=== PATIENT | male | born 1965 | race Caucasian/White ===

== ENCOUNTER 2018-06-25 18:16 | Emergency (ER) | payer OTHER ==
[~2018-06-25] VITALS: Ht 170.2 cm; Wt 136.1 kg
[2018-06-25] MEDS ORDERED: IBUPROFEN 800800 M1 PO (18:35)
[2018-06-25 18:48] LABS: ABSOLUTE EOSINOPHILS 0.2 thou/uL (0.0-0.7); ABSOLUTE LYMPHOCYTES 2.3 thou/uL (0.8-5.3); ABSOLUTE MONOCYTES 0.9 thou/uL (0.0-1.2); BASOPHILS 0.4 %; EOSINOPHILS 2.4 %; HEMATOCRIT 45.2 % (42.0-52.0); HEMOGLOBIN 15.3 gm/dL (14.0-18.0); LYMPHOCYTES 24.1 %; MCH 30.8 pg (26.0-34.0); MCHC 33.8 g/dL (28.0-37.0); MCV 91.1 fL (80.0-100.0); MONOCYTES 9.9 %; MPV 9.1 fl. (7.2-11.1); NUCLEATED RBCS 0 /100WBC; PLATELET COUNT* 243 thou/uL (150-400); POLYS 63.2 %; RBC 4.96 mil/uL (4.50-6.00); RDW-CV 15.1 % (10.5-14.5); WBC 9.5 thou/uL (4.0-11.0)
[2018-06-25 18:58] LABS: ANION GAP 7 mmol/L (7-16); APTT 29.4 Seconds (25.0-31.3); BUN 16 mg/dL (7-18); CALCIUM 8.6 mg/dL (8.5-10.1); CHLORIDE 103 mmol/L (98-107); CO2 31 mmol/L (21-32); GLUCOSE 90 mg/dL (70-99); POTASSIUM 3.8 mmol/L (3.5-5.1); PROTIME 10.3 Seconds (9.20-11.50); SODIUM 141 mmol/L (136-145)
[2018-06-25 19:09] LABS: ALBUMIN 3.2 g/dL (3.4-5.0); ALKALINE PHOSPHATASE 58 U/L (46-116); NT-PRO BRAIN NAT PEPTIDE 1329 pg/mL (<300); SGOT 15 U/L (15-37); SGPT 23 U/L (30-65); TOTAL BILIRUBIN 0.2 mg/dL (<0.1-1.0); TOTAL PROTEIN 7.1 g/dL (6.4-8.2); TROPONIN-I LEVEL <0.06 ng/mL (<0.06)
[2018-06-25 20:00] LABS: URINE BILIRUBIN NEGATIVE (Negative); URINE BLOOD 1+ (Negative); URINE CLARITY CLEAR; URINE COLOR YELLOW; URINE GLUCOSE-RANDOM NEGATIVE (Negative); URINE KETONES NEGATIVE (Negative); URINE LEUKOCYTES-REFLEX NEGATIVE (Negative); URINE NITRITE-REFLEX NEGATIVE (Negative); URINE PROTEIN TRACE (Negative); URINE SPECIFIC GRAVITY 1.015 (1.005-1.030); URINE UROBILINOGEN 0.2 E.U./dl (0.2-1.0)
[2018-06-25 20:12] LABS: BACTERIA-REFLEX None Seen /HPF (None Seen); MUCUS 0-3 Light strn/LPF (None Seen); SQUAMOUS 0-3 Few /LPF (0-3); URINE RBC 0-2 Rare /HPF (0-2); URINE WBC-REFLEX None Seen /HPF (0-5)
[2018-06-25 20:13] LABS: CASTS None Seen /LPF (None Seen); CRYSTALS None Seen /LPF (None Seen)
[2018-06-25 20:33] LABS: AMP/METHAMP Negative (Negative); BARBITURATES Negative (Negative); BENZODIAZEPINES Negative (Negative); COCAINE Negative (Negative); METHADONE Negative (Negative); OPIATES Negative (Negative); PCP Negative (Negative); THC Negative (Negative)
[2018-06-25] MEDS ORDERED: LISINOPRIL10 MG PO (23:16)
[2018-06-25] MEDS ORDERED: CLONIDINE0.1 PO (23:16)
[2018-06-25 23:28] VITALS: BP 177/88
--- NOTE | 2018-06-26 15:00 | EKG ---
[place] [address] ELECTROCARDIOGRAM REPORT Name: FLOWER SHAH Room: [facility]#: [id number] Admission: 06/25/18 Attend Phys: Discharge: 06/25/18 Date of : 61 Report #: [id number] THIS REPORT FOR: //name// [facility] ED Test Date: 2018-06-25 Test Time: 19:09:48 Pat Name: FLOWER SHAH Department: Room: Gender: M Master [place]: : 1965 Requested By: Tyler Cool Order Number: [id number] MD: El Oglesby Measurements Intervals [place] Rate: 71 P: 17 [place]: 174 QRS: -38 QRSD: 114 T: 144 QT: 440 QTc: 479 Interpretive Statements Sinus rhythm Ventricular premature complex Probable left atrial enlargement LVH with IVCD, LAD and secondary repol abnrm Anterior ST elevation, probably due to LVH Borderline prolonged QT interval Compared to ECG 09/18/2007 23:44:37 Ventricular premature complex(es) now present Intraventricular conduction delay now present Left ventricular hypertrophy now present ST (T wave) deviation now present Electronically Signed On 06-26-2018 15:00:25 SAP PORTAL DEVELOPER by El Oglesby [email or web address] <ELECTRONICALLY SIGNED> By: El Oglesby MD, FACC 06/26/18 1500 08 08 El Oglesby MD, FAC /EPI
--- NOTE | 2018-06-26 15:01 | EKG ---
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: : 1965 Requested By: Cheli Hernandez Order Number: [id number] MD: El Oglesby Measurements Intervals [place] Rate: 74 P: 33 [place]: 170 QRS: -38 QRSD: 115 T: 144 QT: 456 QTc: 506 Interpretive Statements Sinus rhythm Ventricular premature complex Probable left atrial enlargement LVH with IVCD, LAD and secondary repol abnrm Prolonged QT interval Electronically Signed On 06-26-2018 15:01:01 LEAD CUSTODIAN by El Oglesby [email or web address] <ELECTRONICALLY SIGNED> By: El Oglesby MD, [facility] 06/26/18 1501 191 09 El Oglesby MD, FACC /EPI
== END 2018-06-25 23:28 | disposition home or self-care (01) ==
LOC: M.ERS 18:16
PROVIDERS: Emergency Medicine; Family Medicine
DX: I10 Essential (primary) hypertension (principal); Z79.899 Other long term (current) drug therapy

== ENCOUNTER 2019-02-14 14:10 | Inpatient (IN) | payer OTHER ==
[~2019-02-14] VITALS: Ht 170.2 cm; Wt 137.9 kg
[~2019-02-14 14:10] MED LIST: CLONIDINE0.1 PO; IBUPROFEN 800800 M1 PO; LISINOPRIL10 MG PO
[2019-02-14 14:15] VITALS: BP 227/135
[2019-02-14 14:25] LABS: ABSOLUTE BASOPHILS 0.1 thou/uL (0.0-0.2); ABSOLUTE EOSINOPHILS 0.3 thou/uL (0.0-0.7); ABSOLUTE LYMPHOCYTES 3.3 thou/uL (0.8-5.3); ABSOLUTE MONOCYTES 0.7 thou/uL (0.0-1.2); ABSOLUTE NEUTROPHILS 5.4 thou/uL (1.6-8.1); BASOPHILS 1.3 %; EOSINOPHILS 2.7 %; HEMATOCRIT 49.7 % (42.0-52.0); HEMOGLOBIN 16.7 gm/dL (14.0-18.0); LYMPHOCYTES 33.8 %; MCH 30.4 pg (26.0-34.0); MCHC 33.6 g/dL (28.0-37.0); MCV 90.3 fL (80.0-100.0); MONOCYTES 7.3 %; MPV 8.7 fl. (7.2-11.1); NUCLEATED RBCS 0 /100WBC; PLATELET COUNT* 283 thou/uL (150-400); POLYS 54.9 %; RBC 5.51 mil/uL (4.50-6.00); RDW-CV 14.7 % (10.5-14.5); WBC 9.9 thou/uL (4.0-11.0)
[2019-02-14 14:34] LABS: CALCIUM 9.2 mg/dL (8.5-10.1); POTASSIUM 3.5 mmol/L (3.5-5.1)
[2019-02-14 14:38] LABS: APTT 31.5 Seconds (25.0-31.3); PROTIME 10.1 Seconds (9.20-11.50)
[2019-02-14 14:48] LABS: ALBUMIN 3.7 g/dL (3.4-5.0); CK-MB MASS 3.3 ng/mL (<0.5-3.6); MAGNESIUM 1.8 mg/dL (1.8-2.4); TOTAL BILIRUBIN 0.3 mg/dL (<0.1-1.0); TOTAL PROTEIN 8.1 g/dL (6.4-8.2); TROPONIN-I LEVEL 0.06 ng/mL (<0.06)
[2019-02-14 16:54] VITALS: BP 113/67
[2019-02-14 17:09] VITALS: BP 108/70
[2019-02-14 17:25] VITALS: BP 105/69
[2019-02-14 18:10] VITALS: BP 127/80
--- NOTE | 2019-02-14 18:46 | NUR ---
RECIEVED REPORT FROM ED NURSE APPROX 1510. PT UP ON UNIT APPROX 1515. PT VITALS TAKEN. PT DENIES CHEST PAIN. PT DENIES SOA. LABS REVIEWED. RESULTS CALLED TO SILO FILLER PHYSICAN AND FIBER ANALYST. PTS O2 DC O2 STAT ON RA IS 98%. WILL CONTINUE TO MONITOR.
[2019-02-14 20:00] VITALS: BP 148/81
[2019-02-15] VITALS (7 sets, daily range): BP systolic 102–154; BP diastolic 72–90
[2019-02-15 04:54] LABS: HEMATOCRIT 44.6 % (42.0-52.0); HEMOGLOBIN 15.3 gm/dL (14.0-18.0); MCH 30.9 pg (26.0-34.0); MCHC 34.2 g/dL (28.0-37.0); MCV 90.4 fL (80.0-100.0); MPV 9.2 fl. (7.2-11.1); RBC 4.94 mil/uL (4.50-6.00); RDW-CV 14.3 % (10.5-14.5); WBC 9.7 thou/uL (4.0-11.0)
[2019-02-15 05:11] LABS: ANION GAP 6 mmol/L (7-16); BUN 17 mg/dL (7-18); CHLORIDE 104 mmol/L (98-107); CHOLESTEROL 171 mg/dL (<200); CO2 29 mmol/L (21-32); GLUCOSE 87 mg/dL (70-99); HDL CHOLESTEROL 30 mg/dL (>40); LDL CHOLESTEROL 110 mg/dL (<100); MAGNESIUM 1.8 mg/dL (1.8-2.4); POTASSIUM 3.8 mmol/L (3.5-5.1); SODIUM 139 mmol/L (136-145); TC:HDL 5.7 Ratio (Not establshd); TRIGLYCERIDE 159 mg/dL (<150); VLDL 32 mg/dL (<40)
[2019-02-15 05:14] LABS: SERUM ASSESSMENT Clear
[2019-02-15 05:21] LABS: TROPONIN-I LEVEL 14.94 ng/mL (<0.06)
--- NOTE | 2019-02-15 09:29 | NUR ---
ASSUMED CARE OF PT THIS AM AROUND 0715- RECEIVING TEAM MEMBER IN PLACE ORDERED, TRACING A-FIB- UPON ASSESSMENT PT NOTED TO BE RESTING IN BED, FAMILY AT SIDE- PT A&O X4- CONTINENT OF BOWEL AND BLADDER- UP AD-JOSE IN ROOM, STEADY GAIT NOTED- LCTA/DIMINISHED IN BASES- RESP EVEN AND UN-LABORED- VSS, O2 SAT 98% ON HOME CPAP THIS AM- ABD SOFT/OBESE/NON-TENDER, BS X4 QUADS- LAST BM REPORTED 02/14/19- IV NOTED TO RIGHT AC INTACT, HEPARIN INFUSSING PRESCIBED- PLANNED CATH IN AM, NPO AT MIDNIGHT- SOTALOL LOAD PLANNED PER CARDIO THIS SHIFT-PT DENIES ANY C/O PAIN/DISCOMFORT AT THIS TIME- CALL LIGHT AND PERSONAL BELONGINGS WITH IN REACH- PT MAKES NEEDS KNOWN- ALL NEEDS MET AT THIS TIME-WCTM
--- NOTE | 2019-02-15 10:35 | EKG ---
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: [place] : 1965 Requested By: Tyler Cool Order Number: [id number] MD: Lawrence Lloyd Measurements Intervals [place] Rate: 153 P: [place]: QRS: -52 QRSD: 107 T: 123 QT: 318 QTc: 508 Interpretive Statements Atrial fibrillation Incomplete left bundle branch block LVH with secondary repolarization abnormality Prolonged QT interval Baseline wander in lead(s) V4 Compared to ECG 06/25/2018 19:10:41 Left bundle-branch block now present Sinus rhythm no longer present Ventricular premature complex(es) no longer present Intraventricular conduction delay no longer present Electronically Signed On 02-15-2019 10:34:54 CDT by Lawrence Lloyd [email or web address] <ELECTRONICALLY SIGNED> By: Lawrence Lloyd MD, FAC 02/15/19 1034 1415 1415 Lawrence Lloyd MD, [facility] /EPI
--- NOTE | 2019-02-15 13:19 | NUR ---
Pt is A&O. Resides at home with his . Active and independent. No DME. No hx of HH or SNF. Pt to have cath tomorrow. No needs anticipated. Following.
--- NOTE | 2019-02-15 14:39 | 2DMMODE ---
[place] [address] 2 D/M-MODE ECHOCARDIOGRAM Name: FLOWER SHAH Room: [address] IN [facility]#: [id number] Admission: 02/14/19 Attend Phys: Zi Marshall, Discharge: Date of : 61 Date of Service: 02/15/19 1438 Report #: [id number] THIS REPORT FOR: //name// APPROVED REPORT Study performed: 02/15/2019 10:10:59 EXAM: Comprehensive 2D, Doppler, and color-flow Echocardiogram Patient Location: In-Patient Room #: [facility] Status: routine BSA: 2.42 HR: 94 bpm BP: 148/90 mmHg Rhythm: Atrial Fibrillation Other Information Technically limited study due to body habitus, poor endocardial definition. Indications Atrial Fibrillation Echo Enhancing Agent Indication: Endocardial border delineation Agent(s) / Amount(s) Used: Optison 3 cc 2D Dimensions IVSd: 20.18 (7-11mm) LVOT Diam: 20.73 (18-24mm) LVDd: 46.37 mm PWd: 18.33 (7-11mm) Ascending Ao: 36.65 (22-36mm) LVDs: 28.07 (25-40mm) Aortic Root: 36.22 mm Volumes Left Atrial Volume (Systole) LA ESV Index: 34.10 mL/m2 Aortic Valve AoV Peak Nasir.: 1.56 m/s AO Peak Gr.: 9.71 mmHg LVOT Max P.34 mmHg AO Mean Gr.: 5.83 mmHg LVOT Mean P.28 mmHg LVOT Max V: 1.35 m/s AO V2 VTI: 21.61 cm LVOT Mean V: 0.95 m/s CONNIE (VTI): 2.87 cm2 LVOT V1 VTI: 18.39 [place] [address] 2 D/M-MODE ECHOCARDIOGRAM Name: FLOWER SHAH Room: [address] IN [facility]#: [id number] Admission: 02/14/19 Attend Phys: Zi Marshall, Discharge: Date of : 61 Date of Service: 02/15/19 1438 Report #: [id number] Mitral Valve MV Decel. Time: 104.72 ms MV PHT: 30.37 ms MVA (PHT): 7.24 cm2 TDI Lateral E' Nasir.: 0.11 m/s Pulmonary Valve PV Peak Nasir.: 1.05 m/s PV Peak Gr.: 4.37 mmHg Left Ventricle The left ventricle is normal size. There is normal LV segmental wall motion. Moderate to severe concentric left ventricular hypertrophy. Left ventricular systolic function is normal. LVEF is 65-70%. This study is not technically sufficient to allow evaluation of the LV diastolic function due to atrial fibrillation. Right Ventricle The right ventricle is normal size. The right ventricular systolic function is normal. Atria Left atrium is mildly dilated. Right atrium is mildly dilated. Aortic Valve Mild aortic valve sclerosis. No aortic regurgitation is present. There is no aortic valvular stenosis. Mitral Valve The mitral valve is normal in structure. There is no mitral valve regurgitation noted. No evidence of mitral valve stenosis. Tricuspid Valve The tricuspid valve is normal in structure. Unable to assess PA pressure. Trace tricuspid regurgitation. Pulmonic Valve The pulmonary valve is normal in structure. There is no pulmonic valvular regurgitation. Great Vessels The aortic root is normal in size. IVC is normal in size and collapses >50% [place] [address] 2 D/M-MODE ECHOCARDIOGRAM Name: FLOWER SHAH Room: [address]#: [id number] Admission: 02/14/19 Attend Phys: Zi Marshall, Discharge: Date of : 61 Date of Service: 02/15/19 1438 Report #: [id number] Pericardium There is no pericardial effusion. <Conclusion> The left ventricle is normal size. Moderate to severe concentric left ventricular hypertrophy. Left ventricular systolic function is normal. LVEF is 65-70%. This study is not technically sufficient to allow evaluation of the LV diastolic function due to atrial fibrillation. There is normal LV segmental wall motion. Mild aortic valve sclerosis. There is no aortic valvular stenosis. IVC is normal in size and collapses >50% with inspiration. Left atrium is mildly dilated. Right atrium is mildly dilated. <ELECTRONICALLY SIGNED> By: Lawrence Lloyd MD, FACC 02/15/19 1438 1438 1438 Lawrence Lloyd MD, FACC /INF
[2019-02-16] VITALS (20 sets, daily range): BP systolic 105–179; BP diastolic 62–109
--- NOTE | 2019-02-16 11:54 | NUR ---
Nutrition: Pt admitted with TX. Seen for BMI. Pt and friend stated that he has a test today and they wanted to wait on those results and possible start of Warfarin before they asked questions about nutrition. RD provided contact info and encouraged pt to call with questions on nutrition. RD available for education via consult as well.
--- NOTE | 2019-02-16 12:30 | NUR ---
Spoke with Dr, anticipate dc within the next 1-2 days. Following.
[2019-02-17] VITALS (13 sets, daily range): BP systolic 120–156; BP diastolic 68–105
[2019-02-17 03:47] LABS: HEMATOCRIT 43.2 % (42.0-52.0); HEMOGLOBIN 14.4 gm/dL (14.0-18.0); MCH 30.5 pg (26.0-34.0); MCHC 33.4 g/dL (28.0-37.0); MCV 91.3 fL (80.0-100.0); MPV 8.8 fl. (7.2-11.1); RBC 4.74 mil/uL (4.50-6.00); RDW-CV 14.6 % (10.5-14.5); WBC 13.8 thou/uL (4.0-11.0)
[2019-02-17 04:04] LABS: MAGNESIUM 1.7 mg/dL (1.8-2.4); TOTAL BILIRUBIN 0.4 mg/dL (<0.1-1.0); TOTAL PROTEIN 5.9 g/dL (6.4-8.2)
--- NOTE | 2019-02-17 06:32 | NUR ---
Pt on bedrest until 2200 last pm. Prior to getting up when bedrest completed, pt c/o pressure/pain to chest thru to back. Once pt got up to side of bed, pt states "pain is gone." Rt groin stable. VSS. Remains in Afib per monitor, HR 90s-100s. Uses home CPAP while asleep. Reports he rested on and off overnight. Pt has blood mixed in urine; states he felt tristan pulling when getting out of bed. Statlock appeared to be placed too low; new statlock placed after pt returned to bed (pt stayed up in chair for at least an hour following bedrest). Will continue to monitor.
--- NOTE | 2019-02-17 09:18 | EKG ---
[place] [address] ELECTROCARDIOGRAM REPORT Name: FLOWER SHAH Room: [address] ADM IN .R.#: [id number] Admission: 02/14/19 Attend Phys: Fuentes Wheatley MD, Discharge: Date of : 61 Report #: [id number] THIS REPORT FOR: //name// [facility] Test Date: 2019-02-16 Test Time: 08:59:35 Pat Name: FLOWER SHAH Department: Room: [facility] Gender: M Tourist Guide: : 1965 Requested By: Mindy Gómez Order Number: [id number] Shantell MD: Lawrence Lloyd Measurements Intervals [place] Rate: 100 P: [place]: QRS: -45 QRSD: 111 T: 132 QT: 419 QTc: 541 Interpretive Statements Atrial fibrillation Abnormal R-wave progression, late transition LVH with IVCD, LAD and secondary repol abnrm Prolonged QT interval Compared to ECG 02/14/2019 14:15:33 Intraventricular conduction delay now present Left bundle-branch block no longer present Electronically Signed On 02-17-2019 9:18:22 CDT by Lawrence Lloyd [email or web address] <ELECTRONICALLY SIGNED> By: Lawrence Lloyd MD, FAC 02/17/1918 Lawrence Lloyd MD, [facility] /EPI
--- NOTE | 2019-02-17 09:26 | EKG ---
[place] [address] ELECTROCARDIOGRAM REPORT Name: FLOWER SHAH Room: [address] ADM IN .R.#: [id number] Admission: 02/14/19 Attend Phys: Fuentes Wheatley MD, Discharge: Date of : 61 Report #: [id number] THIS REPORT FOR: //name// 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 Project Manager: : 1965 Requested By: Fuentes Wheatley Order Number: [id number] Shantell MD: Lawrence Lloyd Measurements Intervals [place] Rate: 76 P: [place]: QRS: -39 QRSD: 116 T: 138 QT: 473 QTc: 533 Interpretive Statements Atrial fibrillation LVH with IVCD, LAD and secondary repol abnrm Prolonged QT interval Compared to ECG 02/14/2019 14:15:33 Intraventricular conduction delay now present Left bundle-branch block no longer present Electronically Signed On 02-17-2019 9:26:03 CDT by Lawrence Lloyd [email or web address] <ELECTRONICALLY SIGNED> By: Lawrence Lloyd MD, FACC 02/17/19 0926 1645 1645 Lawrence Lloyd MD, [facility] /EPI
--- NOTE | 2019-02-17 09:26 | EKG ---
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: : 1965 Requested By: Fuentes Wheatley Order Number: [id number] Shantell MD: Lawrence Lloyd Measurements Intervals [place] Rate: 94 P: [place]: QRS: -41 QRSD: 116 T: 137 QT: 441 QTc: 552 Interpretive Statements Atrial fibrillation LVH with IVCD, LAD and secondary repol abnrm Prolonged QT interval Compared to ECG 02/14/2019 14:15:33 Intraventricular conduction delay now present Left bundle-branch block no longer present Electronically Signed On 02-17-2019 9:25:59 CDT by Lawrence Lloyd [email or web address] <ELECTRONICALLY SIGNED> By: Lawrence Lloyd MD, FACC 02/17/19 0925 1546 1546 Lawrence Lloyd MD, [facility] /EPI
--- NOTE | 2019-02-17 09:27 | EKG ---
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1965 Requested By: Fuentes Wheatley Order Number: [id number] Shantell MD: Lawrence Lloyd Measurements Intervals [place] Rate: 98 P: [place]: QRS: -36 QRSD: 113 T: 137 QT: 395 QTc: 505 Interpretive Statements Atrial fibrillation LVH with IVCD, LAD and secondary repol abnrm Prolonged QT interval Baseline wander in lead(s) V1,V2 Compared to ECG 02/14/2019 14:15:33 Intraventricular conduction delay now present Left bundle-branch block no longer present Electronically Signed On 02-17-2019 9:27:03 CDT by Lawrence Lloyd [email or web address] <ELECTRONICALLY SIGNED> By: Lawrence Lloyd MD, FAC 02/17/19 0927 5 5 Lawrence Lloyd MD, [facility] /EPI
--- NOTE | 2019-02-17 11:19 | NUR ---
Pt is tele status. Pt transferred to ICU yesterday post cath, 5 stents placed. in room discussed insurance options, CM asked Florence from [employer] to contact Pt via 's cell phone [phone]. Pt has the option to have insurance through his job, but states that he has not been able to figure out how to sign up for it. CM encouraged Pt to discuss further with his HR/benefits dept.
--- NOTE | 2019-02-17 12:19 | CARD ---
[address] [address] CARDIAC CATH REPORT Name: FLOWER SHAH Room: [address] IN [facility]#: [id number] Admission: 02/14/19 Attend Phys: Fuentes Wheatley MD, Discharge: Date of : 61 Report #: [id number] THIS REPORT FOR: //name// APPROVED REPORT Study performed: 02/16/2019 11:43:57 Patient Details Patient Status: In-Patient Room #: 214 The patient is a 53 year-old male Event Personnel Fuentes Wheatley Program Evaluation Consultant, Mackenzie Hamm RN Inventory Worker, Adebayo Rhodes (R) Monitor, Kellee Ndiaye RTR Scrub, Mango Saleem SENIOR CONTRACTS ADMINISTRATOR Scrub Procedures Performed ALEX Place w/wo Plasty Addl BR OM 1, ALEX Place w/wo Plasty Single RCA; heart catheterization and left ventriculography Indication Non-STEMI Risk Factors Obesity, Hypercholesterolemia, Hypertension Admission/Lab Medications/Medications given during procedure Angiomax bolus and infusion Procedure Narrative The patient was brought electively to the Cardiac Catheterization Laboratory and was prepped and draped in a sterile manner. The right femoral was infiltrated with 2% Lidocaine subcutaneous anesthesia. A [place] 6 FR sheath was inserted into the right femoral artery. Coronary angiography was performed using coronary diagnostic catheters. The right coronary system was accessed and visualized with a Diagnostic JR4 catheter. The left coronary system was accessed and visualized with a Diagnostic JL 4 catheter. The left ventricle was accessed and visualized with a Diagnostic Straight Pigtail catheter. Left ventricular/Aortic Valve gradient assessed via catheter pullback. Left ventriculogram was performed in SHRESTHA projection. Pre-demployment femoral angiogram was performed . Closure device was deployed with a Fr Angioseal STS 6Fr. The patient tolerated the procedure well and there were no complications associated with the procedure. There [place] [address] CARDIAC CATH REPORT Name: FLOWER SHAH Room: [address] IN ..#: [id number] Admission: 02/14/19 Attend Phys: Fuentse Wheatley MD, Discharge: Date of : 61 Report #: [id number] Intraoperative Conscious Sedation Sedation start time: 13:21 Case end Time: 15:05 Fentanyl 225 mcg Versed 7.0 mg Fluoro Time: 29.3 minutes Dose: DAP 153105 cGycm2 6859 mGy Contrast Type and Amount: Visipaque 550 ml Diagnostic Cath Left Main 0% narrowing LAD Dominant vessel with 20% mid vessel narrowing Circumflex Prominent though nondominant vessel with 50% narrowing of the proximal portion of the first marginal branch and 90% tubular stenosis of the second marginal branch with intraluminal thrombus noted Right Coronary Dominant vessel with 80% narrowing just beyond the acute margin and 90% posterolateral branch stenosis Left Ventriculography The left ventricle is normal in size with normal contractility. The left ventricular ejection fraction is estimated to be 60%. Left ventricular wall motion abnormalities are not present. There is no mitral insufficiency. The procedure was complex by virtue of marked exogenous obesity making serial access difficult. Hemodynamics The aortic pressure is 143/80 mmHg with a mean of 102 mmHg. The left ventricular pressure is 139/8 mmHg with a mean of mmHg. The left ventricular end diastolic pressure is 14 mmHg. There was no gradient across the aortic valve upon pullback. PCI Technique Lesion Anticoagulation was achieved with Angiomax. Patient was preloaded with Angiomax IV 20 ml. Percutaneous coronary intervention was performed on the second obtuse marginal branch segment. The lesion stenosis prior to intervention was 90% with MELIZA 3 flow. A 6FR XB 3.5 100CM Guide Catheter was used to engage the ostium. A IG: BMW 190cm Interventional Guidewire was used to cross the lesion. BALLOON DILATION A Balloon catheter Trek RX 2.5 X 15 was inserted and inflated up to 12.00atm for 20seconds. Additional Inflation: 12.00atm for 10seconds. [place] [address] CARDIAC CATH REPORT Name: FLOWER SHAH Room: [address] IN M.R.#: [id number] Admission: 02/14/19 Attend Phys: Fuentes Wheatley MD, Discharge: Date of : 61 Report #: [id number] STENT DEPLOYMENT A drug-eluting stent Xience Sosa 2.5X18mm 2.5x12, 2.5x12 was inserted and inflated up to 12.00atm for 13seconds. Additional Inflation: 16.00atm for 16seconds. Additional Inflation: 18.00atm for 14seconds. POST STENT DEPLOYMENT BALLOON DILATION A Balloon catheter NC Trek RX 3.0 X 8 was inserted and inflated up to 15.00atm for 11seconds. Additional Inflation: 15.00atm for 10seconds. Final angiography reveals 10 % stenosis with MELIZA 3 flow. STENT DEPLOYMENT A drug-eluting stent Xience Alpine RX 2.5X12 was inserted and inflated up to 12.00atm for 14seconds. Additional Inflation: 14.00atm for 10seconds. PCI Technique Lesion 2 Percutaneous Coronary Intervention was performed on the first right posterior lateral segment. Patient was preloaded with Angiomax IV 20 ml. Percutaneous coronary intervention was performed on the first right posterior lateral segment. The lesion stenosis prior to intervention was 90% with MELIZA flow. A Launcher JR 4 6FR Guide Catheter was used to engage the ostium. A IG: ProwaterFlex 180CM Interventional Guidewire was used to cross the lesion. Stent Deployment A drug-eluting stent [place] RX Stent 2.39X02lt was inserted and inflated up to 10.00atm for 18seconds. Additional Inflation: 12.00atm for 8seconds. Final angiography reveals 0 % stenosis with MELIZA 3 flow. STENT DEPLOYMENT A drug-eluting stent Xience Sosa 2.5X12mm was inserted and inflated up to 15.00atm for 12seconds. Additional Inflation: 17.00atm for 13seconds. POST STENT DEPLOYMENT BALLOON DILATION A Balloon catheter NC Trek RX 3.0 X 8 was inserted and inflated up to 15.00atm for 9seconds. Additional Inflation: 17.00atm for 9seconds. PCI Technique Lesion [address] [address] CARDIAC CATH REPORT Name: FLOWER SHAH Room: [address] IN ..#: [id number] Admission: 02/14/19 Attend Phys: Fuentes Wheatley MD, Discharge: Date of : 61 Report #: [id number] Percutaneous Coronary Intervention was performed on the distal right coronary artery. Patient was preloaded with Angiomax IV 20 ml. Percutaneous coronary intervention was performed on the distal right coronary artery. The lesion stenosis prior to intervention was 80% with MELIZA 3 flow. A Launcher JR 4 6FR Guide Catheter was used to engage the ostium. A IG: ProwaterFlex 180CM Interventional Guidewire was used to cross the lesion. Stent Deployment A drug-eluting stent Juan Manuel RX Stent 2.05G77es was inserted and inflated up to 14.00atm for 15seconds. Additional Inflation: 16.00atm for 15seconds. Additional Inflation: 18.00atm for 14seconds. Post Stent Deployment Balloon Dilation A Balloon catheter NC Trek RX 2.5 X 8 was inserted and inflated up to 18.00atm for 13seconds. Additional Inflation: 22.00atm for 16seconds. Additional Inflation: 22.00atm for 16seconds. Final angiography reveals 10 % stenosis with MELIZA 3 flow. Conclusion #1 significant multivessel coronary arteries characterized by following: A 20% mid LAD narrowing B prominent though nondominant circumflex with 50% first marginal narrowing and 90% tubular second marginal stenosis with intraluminal thrombus noted C dominant right coronary artery with 80% distal right coronary narrowing and 90% posterolateral branch stenosis #2 normal left ventricular systolic function, estimate ejection fraction being 60% #3 minimal elevation of left ventricular end-diastolic pressure at rest #4 successful percutaneous coronary intervention with deployment of sequential drug-eluting stents at the site of 90% second marginal stenosis with 10% residual narrowing and MELIZA-3 flow to the distal vessel with no residual thrombus #5 successful percutaneous coronary intervention with deployment of [facility] [address] [place] [address] CARDIAC CATH REPORT Name: FLOWER SHAH Room: [address] IN ..#: [id number] Admission: 02/14/19 Attend Phys: Fuentes Wheatley MD, Discharge: Date of : 61 Report #: [id number] sequential drug-eluting stents at the sites of 80% distal right coronary stenosis and 90% posterolateral branch stenosis with 10 and 0% residual narrowings Recommendations Cardiac Risk Reduction Program Aggressive Medical Therapy Medications Administered Aspirin (any) Prasugrel Diagnostic Cath Approved by: Fuentes Wheatley MD Date/Time: 02/17/2019 12:16:07 <ELECTRONICALLY SIGNED> By: Fuentes Wheatley MD, FAC 02/17/19 1218 1218 1218Fuentes Wheatley MD, FACC /INF
--- NOTE | 2019-02-17 14:13 | NUR ---
RECIEVED REPORT FROM PREVIOUS RN AT THIS TIME. CONCUR WITH PREVIOUS ASSESSMENT.
--- NOTE | 2019-02-17 14:43 | NUR ---
PT A&O X4. VSS. HEMATURIA PERSISTENT, UROLOGY CONSULTED. PLAN TO CONTINUE BILL'S CATH. IV FLUIDS DC'd. TOLERATED HIS BREAKFAST, NO NAUSEA OR VOMITING. PT TO CT FOR CT ABDOMEN AND PELVIS AND PLANNED ON TRANSFERRING TO TELE AFTER CT. REPORT GIVEN TO RAFI BOWER.
[2019-02-17 20:31] LABS: URINE BLOOD 3+ (Negative); URINE COLOR YELLOW; URINE GLUCOSE-RANDOM NEGATIVE (Negative); URINE KETONES TRACE (Negative); URINE LEUKOCYTES NEGATIVE (Negative); URINE NITRITE POSITIVE (Negative); URINE PROTEIN 2+ (Negative)
[2019-02-17 20:32] LABS: ICTOTEST (BILI CONFIRMATORY) Negative (Negative); URINE BILIRUBIN 1+ (Negative)
[2019-02-17 20:33] LABS: URINE CLARITY CLOUDY
[2019-02-17 20:37] LABS: CASTS None Seen /LPF (None Seen); CRYSTALS None Seen /LPF (None Seen); SQUAMOUS NONE SEEN /LPF (0-3); URINE RBC >20 Many /HPF (0-2); URINE WBC >25 Many /HPF (0-5)
[2019-02-18 00:40] VITALS: BP 101/52
[2019-02-18 04:00] VITALS: BP 127/86
--- NOTE | 2019-02-18 05:30 | NUR ---
ASSUMED PT CARE APPROX 1930. PT IS AWAKE AND ORIENTED X4. VSS ON ROOM AIR. PT WEARS CPAP AT NIGHT. ASSESSMENT DONE AND CHARTED. PT DENIES CHEST PAIN/DISCOMFORT. 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 HEMATURIA STILL PRESENT. PT IS ABLE TO SLEEP MOST OF THE NIGHT. CALL LIGHT WITHIN REACH. HOURLY ROUNDING DONE FOR PT SAFETY.
[2019-02-18 08:10] VITALS: BP 141/109
--- NOTE | 2019-02-18 08:50 | NUR ---
ASSUMED CARE OF PT THIS AM AROUND 0715- BRIM POUNCING MACHINE OPERATOR IN PLACE ORDERED, TRACING A-FIB/RATE CONTROLLED- UPON ASSESSMENT PT NOTED TO BE RESTING IN BED- PT A&O X4- CONTINENT OF BOWEL, BILL IN PLACE D/D SLIGHT BLOOD TINGED URINE- DIMINISHED LUNG SOUNDS, RESP EVEN AND UN-LABORED- VSS, O2 SAT 98% ON RA- ABD SOFT/OBESE/NON-TENDER, BS X 4 QUADS- LAST BM REPORTED 02/17/19- IV NOTED TO LEFT HAND INTACT AND SL- GOOD PO INTAKE NOTED THIS AM WITH BREAKFAST- PT DENIES ANY C/O PAIN/DISCOMFORT AT THIS TIME- CALL LIGHT AND PERSONAL BELONGINGS WITH IN REACH- PT MAKES NEEDS KNOWN- ALL NEEDS MET AT THIS TIME-WCTM
[2019-02-18] MEDS ORDERED: LIPITOR 20 MG T20 M1 PO (10:00)
[2019-02-18] MEDS ORDERED: CARDIZEM CD240 M1 PO (10:01)
[2019-02-18] MEDS ORDERED: TOPROL XL100 MG PO (10:02)
[2019-02-18] MEDS ORDERED: EFFIENT10 MG PO (10:03)
[2019-02-18 12:00] VITALS: BP 117/69
[2019-02-18] MEDS ORDERED: ASPIRIN81 M2 PO (12:19)
[2019-02-18] MEDS ORDERED: FLOMAX0.4 MG PO (12:20)
[2019-02-18] MEDS ORDERED: CEFUROXIME500 MG PO (12:24)
--- NOTE | 2019-02-18 14:08 | NUR ---
ORDERS RECEIVIED FOR [facility] TO D/C PER THIS SHIFT IF [facility] ONCE BILL REMOVED- NENA RASHID NP WITH UROLOGY CONTACTED VIA PHONE WITH [facility] TO REMOVE BILL- BILL REMOVED AND PT ABLE TO URINATE ON OWN WITH NO PROBLEMS- RETURN PHONE CALL TO STEVIE BARRETT MADE WITH [facility] TO D/C TO HOME WITH NEEDED FOLLOW UP IN 2 WEEKS WITH FOR POSSIBLE CYSTOSCOPY NOTED- IV TO RIGHT HAND D/C'D ALONG WITH BRANDS EDITOR PRIOR TO D/C- D/C EDUCATION/TEACHING/NEEDED FOLLOW UP'S COMMUNICATED TO PT AND WITH VERBLA UNDERSTANDING RECEIEVED PRIOR TO D/C- CM IN TO SPEAK WITH PT REGUARDING PRESCRITIONS PRIIOR TO D/C WELL, WITH 4 DOLLAR LIST PROVIDED- WRITTEN EDUCATION ALONG WITH SCRIPTS PROVIDED TO PT PRIOR TO D/C- BELONGINGS PACKED AND ACCOUNTED FOR PER PT AND - PT CURRENTLY GETTING DRESSED AND READY FOR D/C- WCTM
[2019-02-18] MEDS ORDERED: NITROGLYCERIN0.4 MG SUBLING (14:28)
[2019-02-18 14:30] VITALS: BP 140/86
== END 2019-02-18 14:45 | disposition home or self-care (01) | DRG 246 ==
LOC: M.ERS 14:10 → M.2W 14:57 → M.ICU 14:57 → M.TBA-ER 14:57 → M.2W 17:02 → M.ICU 02-16 18:16 → M.2W 02-17 14:12
PROVIDERS: Family Medicine; Internal Medicine; Nurse Practitioner Adult Health; ADMIT Internal Medicine
PROC: 027237Z Dilation of Coronary Artery, Three Arteries with Four or More Drug-eluting Intraluminal Devices, Percutaneous Approach (ICD-10-PCS; principal; 2019-02-16)
PROC: B215YZZ Fluoroscopy of Left Heart using Other Contrast (ICD-10-PCS; principal; 2019-02-16)
PROC: 4A023N7 Measurement of Cardiac Sampling and Pressure, Left Heart, Percutaneous Approach (ICD-10-PCS; principal; 2019-02-16)
PROC: B41FYZZ Fluoroscopy of Right Lower Extremity Arteries using Other Contrast (ICD-10-PCS; principal; 2019-02-16)
PROC: B211YZZ Fluoroscopy of Multiple Coronary Arteries using Other Contrast (ICD-10-PCS; principal; 2019-02-16)
DX: I21.4 Non-ST elevation (NSTEMI) myocardial infarction (principal); I16.1 Hypertensive emergency; Z68.42 Body mass index [BMI] 45.0-49.9, adult; E78.00 Pure hypercholesterolemia, unspecified; E66.01 Morbid (severe) obesity due to excess calories; F17.210 Nicotine dependence, cigarettes, uncomplicated; I11.0 Hypertensive heart disease with heart failure; I50.9 Heart failure, unspecified; I48.0 Paroxysmal atrial fibrillation; G47.33 Obstructive sleep apnea (adult) (pediatric); R31.0 Gross hematuria; Z79.82 Long term (current) use of aspirin; Z79.899 Other long term (current) drug therapy; Z71.6 Tobacco abuse counseling

== ENCOUNTER 2021-02-16 12:36 | Inpatient (IN) | payer OTHER ==
[~2021-02-16] VITALS: Ht 170.2 cm; Wt 138.8 kg
[~2021-02-16 12:36] MED LIST changes: +ASPIRIN81 M2 PO; +CARDIZEM CD240 M1 PO; +CEFUROXIME500 MG PO; +EFFIENT10 MG PO; +FLOMAX0.4 MG PO; +LIPITOR 20 MG T20 M1 PO; +NITROGLYCERIN0.4 MG SUBLING; +TOPROL XL100 MG PO
[2021-02-16 12:49] VITALS: BP 141/80
[2021-02-16] MEDS ORDERED: FLOMAX0.4 MG PO (12:54)
[2021-02-16] MEDS ORDERED: LISINOPRIL-HCT1 EAC2 PO (12:55)
[2021-02-16 13:13] LABS: ABSOLUTE BASOPHILS 0.2 thou/uL (0.0-0.2); ABSOLUTE EOSINOPHILS 0.5 thou/uL (0.0-0.7); ABSOLUTE LYMPHOCYTES 1.9 thou/uL (0.8-5.3); ABSOLUTE MONOCYTES 0.6 thou/uL (0.0-1.2); ABSOLUTE NEUTROPHILS 4.4 thou/uL (1.6-8.1); BASOPHILS 2.1 %; EOSINOPHILS 6.4 %; HEMATOCRIT 40.2 % (42.0-52.0); HEMOGLOBIN 13.1 gm/dL (14.0-18.0); LYMPHOCYTES 25.1 %; MCH 29.4 pg (26.0-34.0); MCHC 32.6 g/dL (28.0-37.0); MCV 90.4 fL (80.0-100.0); MONOCYTES 7.4 %; MPV 8.7 fl. (7.2-11.1); NUCLEATED RBCS 0 /100WBC; PLATELET COUNT* 253 thou/uL (150-400); RBC 4.45 mil/uL (4.50-6.00); RDW-CV 14.5 % (10.5-14.5); WBC 7.5 thou/uL (4.0-11.0)
[2021-02-16 13:17] LABS: CREATININE 1.3 mg/dL (0.6-1.3); POTASSIUM 3.6 mmol/L (3.5-5.1)
[2021-02-16 13:21] LABS: ALBUMIN 3.6 g/dL (3.4-5.0); TOTAL BILIRUBIN 0.4 mg/dL (<0.1-1.0); TOTAL PROTEIN 7.4 g/dL (6.4-8.2)
[2021-02-16 13:24] LABS: PROTIME 10.5 Seconds (9.20-11.50)
[2021-02-16 18:12] VITALS: BP 104/68
[2021-02-16 18:39] VITALS: BP 118/68
--- NOTE | 2021-02-16 20:19 | NUR ---
PT ADMITTED TO ROOM 223 VIA CART FROM ED AT APPROX 1830, REPORT RECEIVED FROM RAFI CARTAGENA. PT NOTED TO HAVE CARDIOLOGY CONSULT IN PLACE BUT CONSULT NOT CHARTED ON BEING CALLED IN, ASKED ED RN AND SHE WASN'T SURE IF IT WAS CALLED IN OR NOT. PT AOX4, STATES CP HAS SUBSIDED TO A 1/10 PAIN, LAB CAME TO ROOM IMMEDIATELY TO DRAW TROP, CAME BACK CRITICALLY HIGH AT 2.78, DR FISCHER AND DR MENDOZA NOTIFIED AT THIS TIME. ORDERS RECEIVED TO START HEPARIN DRIP AND CHANGE BABY ASA TO BID. PT HEART RATE IN 50'S UPON COMING TO THE FLOOR AND HE WAS ON A CARDIZEM DRIP GOING AT 5. DRIP STOPPED AND ONLY RESTARTED AFTER SPEAKING TO DR MENDOZA WHO SAID TO RESTART IT AT 2.5, CARDIZEM CURRENTLY RUNNING. HOME MEDS RECONCILED AND DR FISCHER NOTIFIED.
[2021-02-16 21:35] VITALS: BP 107/62
[2021-02-17] VITALS: BP 107/47
[2021-02-17 04:00] VITALS: BP 101/60
[2021-02-17 04:48] LABS: ABSOLUTE BASOPHILS 0.1 thou/uL (0.0-0.2); ABSOLUTE EOSINOPHILS 0.5 thou/uL (0.0-0.7); ABSOLUTE LYMPHOCYTES 2.6 thou/uL (0.8-5.3); ABSOLUTE MONOCYTES 0.6 thou/uL (0.0-1.2); ABSOLUTE NEUTROPHILS 4.3 thou/uL (1.6-8.1); BASOPHILS 0.9 %; CALCIUM 8.7 mg/dL (8.5-10.1); CREATININE 1.2 mg/dL (0.6-1.3); EOSINOPHILS 6.7 %; HEMATOCRIT 39.7 % (42.0-52.0); HEMOGLOBIN 13.4 gm/dL (14.0-18.0); LYMPHOCYTES 32.1 %; MCH 30.1 pg (26.0-34.0); MCHC 33.6 g/dL (28.0-37.0); MCV 89.5 fL (80.0-100.0); MONOCYTES 6.8 %; MPV 8.9 fl. (7.2-11.1); NUCLEATED RBCS 0 /100WBC; PLATELET COUNT* 248 thou/uL (150-400); POLYS 53.5 %; POTASSIUM 3.4 mmol/L (3.5-5.1); RBC 4.44 mil/uL (4.50-6.00); RDW-CV 14.2 % (10.5-14.5); WBC 8.1 thou/uL (4.0-11.0)
[2021-02-17 08:42] VITALS: BP 92/56
--- NOTE | 2021-02-17 10:03 | NUR ---
PT IS ABLE TO COMMUNICATE HIS NEEDS TO STAFF EFFECTIVELY. HE HAS DENIED THE NEED FOR PAIN MEDICATION UP TO 0700 THIS MORNING. HE HAS DENIED CHEST PAIN OVERNIGHT; PT ASKED TO REPORT ANY REOCCURANCE OF HIS CHEST PAIN.
--- NOTE | 2021-02-17 10:48 | EKG ---
[place] [address] ELECTROCARDIOGRAM REPORT Name: FLOWER SHAH Room: [address] ADM IN [facility]#: [id number] Admission: 02/16/21 Attend Phys: Vj Tello, Discharge: Date of : 61 Date of Service: 02/16/21 1242 Report #: [id number] THIS REPORT FOR: //name// [facility] ED Test Date: 2021-02-16 Test Time: 12:42:54 Pat Name: FLOWER SHAH Department: Room: [facility] Gender: M Family Lawyer: TP : 1965 Requested By: Chris Alexander Order Number: [id number] MD: Og King Measurements Intervals Anderson Rate: 119 P: MD: QRS: -40 QRSD: 113 T: 123 QT: 349 QTc: 492 Interpretive Statements Atrial fibrillation Incomplete left bundle branch block LVH with secondary repolarization abnormality Borderline prolonged QT interval Baseline wander in lead(s) V1 Compared to ECG 02/17/2019 08:16:43 Left bundle-branch block now present Intraventricular conduction delay no longer present Electronically Signed On 02-17-2021 10:47:48 CDT by Og King [email or web address] <ELECTRONICALLY SIGNED> By: Ryann King MD, [facility] 02/17/21 1047 124 1242 Ryann King MD, [facility] /EPI
[2021-02-17 12:03] VITALS: BP 122/72
--- NOTE | 2021-02-17 16:30 | NUR ---
PT A&Ox4. VITALS STABLE. IV PATENT. HEPARIN DRIP INFUSING, APPT CURRENTLY 44.3, WILL REDRAW AT 1845. NO PAIN. WILL BE NPO AT MIDNIGHT FOR HEART CATH TOMORROW. WILL CONTINUE TO MONITOR.
[2021-02-17 16:44] VITALS: BP 107/71
[2021-02-17 20:27] VITALS: BP 123/73
[2021-02-18 00:16] VITALS: BP 155/77
[2021-02-18 03:56] VITALS: BP 150/70
[2021-02-18 04:34] LABS: PROTIME 10.9 Seconds (9.20-11.50)
[2021-02-18 04:36] LABS: ANION GAP 11 mmol/L (7-16); BUN 19 mg/dL (7-18); CALCIUM 8.4 mg/dL (8.5-10.1); CHLORIDE 108 mmol/L (98-107); CHOLESTEROL 105 mg/dL (<200); CO2 25 mmol/L (21-32); CREATININE 1.2 mg/dL (0.6-1.3); GLUCOSE 96 mg/dL (70-99); HDL CHOLESTEROL 35 mg/dL (>40); LDL CHOLESTEROL 49 mg/dL (<100); POTASSIUM 3.8 mmol/L (3.5-5.1); SODIUM 144 mmol/L (136-145); TRIGLYCERIDE 107 mg/dL (<150); VLDL 21 mg/dL (<40)
[2021-02-18 04:38] LABS: SERUM ASSESSMENT Clear
[2021-02-18 08:00] VITALS: BP 148/74
--- NOTE | 2021-02-18 11:07 | NUR ---
Nutrition: Pt admitted with afib. Consult received for "wt, CAD." Pt stated he usually weighs 300#. H/o afib, GABO, OBE, CAD. Albumin 3.6. Meds: metoprolol, HCTZ, lisinopril, aspirin. He is currently NPO for heart cath today. He said he tries to follow a low Na diet at home, uses Mrs Abdiaziz. He accepted diet/nutrition info on heart healthy diet. RD contact info provided to pt as well to call for any further diet questions. Consider mild risk at this time.
[2021-02-18 12:41] VITALS: BP 145/92
--- NOTE | 2021-02-18 13:47 | NUR ---
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 PT USES 0 DME. NO CM D/C PLANNING NEEDS ANTICIPATED. CM WILL REMAIN AVAILABLE TO ASSIST AND FOLLOW NEEDED.
[2021-02-18] MEDS ORDERED: XARELTO20 MG PO (15:57)
[2021-02-18] MEDS ORDERED: FLECAINIDE ACET50 M1 PO (15:57)
[2021-02-18 16:20] VITALS: BP 113/71
[2021-02-18 18:42] VITALS: BP 113/71
--- NOTE | 2021-02-19 07:49 | CON ---
[address] [address] CONSULTATION Name: FLOWER SHAH Room: [address] IN .R.#: [id number] Admission: 02/16/21 Attend Phys: Vj Tello MD Discharge: 02/18/21 Date of : 61 Report #: [id number] THIS REPORT FOR: cc: [facility] - Clinic physician unknown [facility] - Clinic physician unknown Ryann King MD [facility] ~ DATE OF CONSULTATION: 02/17/2021 CARDIOLOGY CONSULTATION HISTORY OF PRESENT ILLNESS: I was asked by Dr. Tello to see this 55-year-old male in Cardiology consultation for evaluation and treatment of atrial fibrillation with a rapid ventricular response associated with chest pain and troponin elevations consistent with a non-ST segment elevation NH. This man has a history of coronary artery disease. He had an NH 2 years ago. He tells me he got 5 stents then. He had atrial fibrillation with that. He has been followed at [facility] since then. He is apparently followed there because of lack of insurance. He developed chest pain and atrial fibrillation. Yesterday morning, he is not sure which came first. He describes the chest pain as a tightness that is substernal. It was an 8 on a scale of 10. It did radiate down to his right arm. There were no associated symptoms. That pain began about an hour before he was brought to the Emergency Room. He arrived at the Emergency Room at 12:30. He said it lasted until about 1:00 p.m. He was given IV diltiazem in the ER to control his heart rate and once the blood pressure was controlled or his chest pain was controlled, it went away. He did take 3 nitroglycerins that apparently were fresh before coming to the hospital and got no relief. PAST MEDICAL HISTORY: Includes hypertension, hypercholesterolemia, and morbid obesity. HOME MEDICATIONS: Aspirin 81 mg daily, Effient 10 mg daily, atorvastatin 20 mg daily, diltiazem CD 240 mg daily, lisinopril/hydrochlorothiazide 20/25 one daily, Toprol-XL 100 mg daily, p.r.n. nitroglycerin, Effient 10 mg daily and Flomax 0.4 mg daily. ALLERGIES: He has no known allergies. REVIEW OF SYSTEMS: Negative for some 40 different complaints in 14 different system categories. Please see our review of system form for details and negatives in review of systems. FAMILY HISTORY: Noncontributory. SOCIAL HISTORY: Does not smoke, [place] [address] CONSULTATION Name: FLOWER SHAH Room: [address]#: [id number] Admission: 02/16/21 Attend Phys: Vj Tello MD Discharge: 02/18/21 Date of : 61 Report #: [id number] PHYSICAL EXAMINATION: GENERAL: He presents as a well-developed, well-nourished man in no acute distress. VITAL SIGNS: His pulse was 51 and irregular, blood pressure is 101/60, respirations 16 and regular, temperature is 97.4. HEENT: His head was atraumatic. Eyes clear. NECK: Supple. There is no jugular venous distention, hepatojugular reflux is not enlarged. There is no adenopathy. Mucous membranes are moist. SKIN: Warm and dry. LUNGS: Clear to auscultation and percussion. CARDIAC: Examination of heart revealed normal first and second heart sound. There is no S4. There is no S3. There are no murmurs, rubs, thrills, heaves or gallops. The rhythm was irregularly irregular, rate was approximately 50-60. PMI is nondisplaced. ABDOMEN: Soft, flat, nontender, no palpable masses, no organomegaly. EXTREMITIES: Reveal no cyanosis, clubbing or edema. NEUROLOGIC: The patient mentated normally, talked normally and moved all extremities normally. LABORATORY DATA: His EKG shows incomplete left bundle branch block. There is atrial fibrillation. The heart rate was 119. There is left ventricular hypertrophy with secondary repolarization abnormalities versus ischemia. The T waves are dramatically inverted in I and aVL and flat in V6. The QT interval is prolonged with a QTc of 492 and a QT of 349. As far as I know, he is not on a type 1 antiarrhythmic or any antiarrhythmic for that matter. His troponins were initially 0.06, subsequently 0.47 and subsequently 2.78. I do not see a BNP. IMPRESSION: 1. Atrial fibrillation with rapid ventricular response that has since been controlled with diltiazem. 2. Non-ST segment elevation myocardial infarction. 3. Coronary artery disease. 4. Status post previous multiple stents. 5. Status post myocardial infarction in the past. 6. Hypertension. 7. Hyperlipidemia. 8. Morbid obesity. RECOMMENDATIONS: He has been on heparin. His rate is controlled with diltiazem. I would continue that. He has been taken off of the diltiazem IV, so he has been restarted on his p.o. diltiazem. He will probably need his beta amber resumed as well ultimately. He will probably also need his antihypertensives resume. He should have cardiac catheterization and coronary angiography. Once he has had the cardiac catheterization, then he may require [address] [address] CONSULTATION Name: FLOWER SHAH Room: [address] IN ..#: [id number] Admission: 02/16/21 Attend Phys: Vj Tello MD Discharge: 02/18/21 Date of : 61 Report #: [id number] cardioversion. He will probably need an antiarrhythmic. He is not a candidate for a type 1 drug. Thank you very much for asking me to see the patient. If there are any questions, please feel free to contact me. <ELECTRONICALLY SIGNED> By: Ryann King MD, FACFilippo 02/19/21 0749 0911 [id number]. Og King MD, FACC /nt
--- NOTE | 2021-02-19 10:43 | CARD ---
[address] [address] CARDIAC CATH REPORT Name: FLOWER SHAH Room: [address]#: [id number] Admission: 02/16/21 Attend Phys: Vj Tello MD Discharge: 02/18/21 Date of : 61 Report #: [id number] THIS REPORT FOR: cc: [facility] - Clinic physician unknown [facility] - Clinic physician unknown El Oglesby MD [facility] ~ APPROVED REPORT Study performed: 02/18/2021 12:32:58 Patient Details Patient Status: In-Patient Room #: The patient is a 55 year-old male Event Personnel El Oglesby Analytical Consultant, Sangeeta Mireles RN Psychiatric Social Worker, Inessa Pastrana RN Monitor, Guillermo Elias RTR Scrub, Saranya Clark RTR Monitor Procedures Performed cardiac catheterizationArt Access - R radial artery Left Heart Cath w/or w/o Coronaries [id number] [facility] Hemostasis with Hemoband Indication Atrial fibrillation, Chest pain Risk Factors Coronary Artery Disease Previous Procedures/Diagnoses Previous PCI Admission/Lab Medications/Medications given during procedure Heparin Unfract. Procedure Narrative The patient was brought electively to the Cardiac Catheterization Laboratory and was prepped and draped in a sterile manner. The right wrist was infiltrated with 1% Lidocaine subcutaneous anesthesia. IV conscious sedation was used throughout procedure with appropriate monitoring and was performed in the presence of a registered nurse who was an independent trained observer other than the physician performing the procedure. A 6 sheath was inserted [place] [address] CARDIAC CATH REPORT Name: FLOWER SHAH Room: [address]#: [id number] Admission: 02/16/21 Attend Phys: Vj Tello MD Discharge: 02/18/21 Date of : 61 Report #: [id number] radial artery. Coronary angiography was performed using coronary diagnostic catheters. The right coronary system was accessed and visualized with a Diagnostic catheter. The left coronary system was accessed and visualized with a Diagnostic catheter. The left ventricle was accessed and visualized with a Diagnostic catheter. Left ventricular/Aortic Valve gradient assessed via catheter pullback. Left ventriculogram was performed in SHRESTHA projection. Closure device was deployed with a 6 Fr vascband. The patient tolerated the procedure well and there were no complications associated with the procedure. There was no hematoma. Intraoperative Conscious Sedation Sedation start time: 13:07 Case end Time: 13:25 No sedation was given Dose: 1251 mGy Contrast Type and Amount: Visipaque 105 ml Coronary Angiography The patient's coronary anatomy is co- dominant. Diagnostic Cath Left Main 0% stenosis LAD 0% stenosis Circumflex 0% stenosis OM1 large vessel with a mid stent that had a 30% stenosis Right Coronary 30% proximal stenosis. A distal stent had 0% stenosis Ramus large vessel with 30% proximal stenosis Left Ventriculography The left ventricular ejection fraction is estimated to be 50-55%. Left ventricular wall motion abnormalities are not present. There is no mitral insufficiency. Hemodynamics The aortic pressure is 127/87 mmHg with a mean of 104 mmHg. The left ventricular pressure is 139/9 mmHg with a mean of mmHg. The left ventricular end diastolic pressure is 12 mmHg. There was no gradient across the aortic valve upon pullback. Pullback from the left ventricle to the aorta revealed no gradient across the aortic valve. STENT DEPLOYMENT A stent Radial Drape was inserted and inflated [place] [address] CARDIAC CATH REPORT Name: FLOWER SHAH Room: [address] [place] [facility]#: [id number] Admission: 02/16/21 Attend Phys: Vj Tello MD Discharge: 02/18/21 Date of : 61 Report #: [id number]. Conclusion 1. no significant stenosis of stents in the first marginal branch of the circumflex artery, and in the distal RCA 2. LVEF 50-55% Recommendations Cardiac Rehabilitation Referral Aggressive Medical Therapy <ELECTRONICALLY SIGNED> By: El Oglesby MD, [facility] 02/19/21 1043 1043 [id number] Eleonora Oglesby MD, FACC /INF
== END 2021-02-18 19:05 | disposition home or self-care (01) | DRG 281 ==
LOC: M.ERS 12:36 → M.TBA-ER 12:56 → M.2W 12:56
PROVIDERS: Internal Medicine; Physician Assistant; ADMIT Internal Medicine; ATTEND Internal Medicine
PROC: 5A09357 Assistance with Respiratory Ventilation, Less than 24 Consecutive Hours, Continuous Positive Airway Pressure (ICD-10-PCS; principal; 2021-02-16)
PROC: 4A023N7 Measurement of Cardiac Sampling and Pressure, Left Heart, Percutaneous Approach (ICD-10-PCS; 2021-02-18)
PROC: B211YZZ Fluoroscopy of Multiple Coronary Arteries using Other Contrast (ICD-10-PCS; 2021-02-18)
PROC: B215YZZ Fluoroscopy of Left Heart using Other Contrast (ICD-10-PCS; 2021-02-18)
DX: I25.119 Atherosclerotic heart disease of native coronary artery with unspecified angina pectoris (principal); I21.A1 Myocardial infarction type 2; Z68.42 Body mass index [BMI] 45.0-49.9, adult; E66.2 Morbid (severe) obesity with alveolar hypoventilation; I48.0 Paroxysmal atrial fibrillation; E78.5 Hyperlipidemia, unspecified; I10 Essential (primary) hypertension; E78.00 Pure hypercholesterolemia, unspecified; Z20.822 Contact with and (suspected) exposure to COVID-19; Z79.899 Other long term (current) drug therapy; Z79.82 Long term (current) use of aspirin; I25.2 Old myocardial infarction; Z95.5 Presence of coronary angioplasty implant and graft; Z86.73 Personal history of transient ischemic attack (TIA), and cerebral infarction without residual deficits